=== PATIENT | male | born 1975 | race Caucasian/White ===

== ENCOUNTER 2019-11-15 15:38 | Inpatient (IN) | payer OTHER ==
[~2019-11-15] VITALS: Ht 167.6 cm; Wt 76.7 kg
[2019-11-15 15:39] VITALS: BP 102/65
[2019-11-15 17:02] LABS: ABSOLUTE NEUTROPHILS 3.6 thou/uL (1.4-8.2); BASOPHILS 0.6 % (0.0-2.0); EOSINOPHILS 0.5 % (0.0-3.0); HEMATOCRIT 43.6 % (42.0-52.0); HEMOGLOBIN 15.1 gm/dL (14.0-18.0); LYMPHOCYTES 12.7 % (24.0-44.0); MCH 31.8 pg (26.0-34.0); MCHC 34.7 g/dL (28.0-37.0); MCV 91.6 fL (80.0-100.0); MONOCYTES 10.9 % (1.0-8.0); PLATELET COUNT 141 thou/uL (150-400); POLYS 75.3 % (36.0-66.0); RBC 4.76 mil/uL (4.50-6.00); RDW 13.4 % (10.5-14.5); WBC 4.8 thou/uL (4.0-11.0)
[2019-11-15 17:17] LABS: ANION GAP 12 mmol/L (7-16); BUN 11 mg/dL (7-18); CALCIUM 8.5 mg/dL (8.5-10.1); CHLORIDE 94 mmol/L (98-107); CO2 24 mmol/L (21-32); CREATININE 0.7 mg/dL (0.7-1.3); GLUCOSE 192 mg/dL (74-106); POTASSIUM 3.8 mmol/L (3.5-5.1); SODIUM 130 mmol/L (136-145)
[2019-11-15 17:27] LABS: ALBUMIN 3.3 g/dL (3.4-5.0); MAGNESIUM 1.9 mg/dL (1.8-2.4); SALICYLATE < 2.8 mg/dL (2.8-20.0); SGOT 111 U/L (15-37); SGPT 118 U/L (30-65); TOTAL BILIRUBIN 0.8 mg/dL (0.2-1.0); TOTAL PROTEIN 7.5 g/dL (6.4-8.2); TROPONIN-I <0.06 ng/mL (<0.06)
[2019-11-15] MEDS ORDERED: METFORMIN HCL500 MG PO (18:22)
[2019-11-15] MEDS ORDERED: DOXYCYCLINE 10100 MG PO (18:22)
[2019-11-15 19:32] VITALS: BP 98/72
--- NOTE | 2019-11-15 19:36 | NUR ---
CALLED TO GIVE REPORT AND WAS TOLD RN BUSY IN A ROOM AND WILL CALL BACK LATER
[2019-11-15 19:44] LABS: BE(vivo) -3.6 mmol/L (-2 to +3); HCO3 19.6 mmol/L (22.0-26.0); PCO2 30.7 mmHg (35.0-45.0); PO2 69.3 mmHg (80.0-100.0); pH 7.424 (7.360-7.450); sO2 94.5 % (92.0-98.0)
[2019-11-15 20:13] VITALS: BP 100/69
[2019-11-15 21:40] VITALS: BP 89/58
--- NOTE | 2019-11-16 02:52 | NUR ---
PATIENT ASSESSED ON ADMISSION, ADMITTED PER CART TO ROOM 356. IS ALERT X 4. SKIN WARM AND DRY. LUNGS CTA-DISM. UP AD SHELDON. TELE- SHOWS NSR. NO EDEMA NOTED CAME IN BY AMBULANCE BECAUSE HE PASSED OUT IN THE YARD. HE STATED "MY NIECE KICKED ME OUT OF THE HOUSE." HAS NOT TAKEN BLOOD SUGAR MNEDICATION FOR OVER 2 YEARS. NO SKIN ISSUES. HAS A LEFT FA IV AND FLUIDS STARTED BY RN. TAKEN ALL MEDICATION ORDERED. BLOOD SUGAR WAS 300. 6 UNITS OF INSULIN GIVEN PER ORDERS. COVID- 19 TEST DONE AND SENT TO LAB. 02 AT 2LNC. DENIES ANY SOA. SLIGHT FEVER OF 99.1. SKIN WARM AND DRY. TYLENOL GIVEN FOR BACK PAIN AND FEVER. CONT PLAN OF CARE. DOES SPEAK CYMRAES. MAIN LANGUAGE NIS LUX[place]BOURGISH.
[2019-11-16 03:51] VITALS: BP 87/65
[2019-11-16 08:34] VITALS: BP 106/80
--- NOTE | 2019-11-16 12:52 | NUR ---
COVID TEST RESULTED POSITIVE TODAY AT 1210, CALLED TO UNIT BY LAB. SORAYA MANCILLA RN ROUNDING ON UNIT AND MADE AWARE, STATES SHE WILL CALL DR. MENDEZ TO MAKE AWARE, PATIENT TO STAY IN PRECAUTIONS. NO NEED TO RETEST PATIENT HAS HAD ANOTHER RECENT POSITIVE RESULT AT [facility] IN PAST WEEK.
[2019-11-16 15:04] LABS: URINE BILIRUBIN NEGATIVE (Negative); URINE BLOOD NEGATIVE (Negative); URINE CLARITY CLEAR; URINE COLOR YELLOW; URINE GLUCOSE-RANDOM* 2+ (Negative); URINE KETONES 3+ (Negative); URINE LEUKOCYTES-REFLEX NEGATIVE (Negative); URINE NITRITE-REFLEX NEGATIVE (Negative); URINE PROTEIN (DIPSTICK) NEGATIVE (Negative); URINE SPECIFIC GRAVITY 1.025 (1.005-1.035)
[2019-11-16 15:09] LABS: AMP/METHAMP Negative (Negative); BARBITURATES Negative (Negative); BENZODIAZEPINES Negative (Negative); COCAINE Negative (Negative); METHADONE Negative (Negative); OPIATES Negative (Negative); PCP Negative (Negative)
[2019-11-16 15:50] VITALS: BP 106/80
--- NOTE | 2019-11-16 16:00 | NUR ---
ASSUMED PATIENT CARE TODAY AT APPROXIMATELY 0700. PATIENT RESULTED POSITIVE FOR COVID THIS SHIFT AND DR. MENDEZ/ SORAYA MANCILLA AWARE, TO REMAIN IN PRECAUTIONS. REMAINED ON O2 THIS SHIFT. NO ACUTE SOB BUT DRY COUGH IS STILL NOTED, COMPLAINTS OF SORE THROAT THROUGHT SHIFT, MEDS ORDERED FOR COUGH, WILL CTM FOR EFFECTIVENESS. PT HAD FEVER OF 101.5 THIS SHIFT, TYLENOL GIVEN. CT OF CHEST COMPLETED, AWAITING RESULTS.
--- NOTE | 2019-11-16 16:12 | NUR ---
Chart reveiwed and case discussed with the care team. Pt in enhanced ISO for Covid+. Instructional Design Manager attempted to reach the pt via both his room and cell phone with no success. Message left on cell to contact cm regarding dc planning needs. Pt is pt pay, no insurance and works as a alarm mechanic. He is currently unemployed and was staying with his niece. He is no longer able to stay there and is making arrangements to stay with a friend in [place], [place]. The pt has utilized a [facility] in the past but has been without any primary care f/u and scripts (insulin ) for a number of months. Cm can assist with vouchering 30 days of medications at dc if needed. Pt was recently at [facility]. [facility] noted on the pt's dc instructions should he be dc ready over the weekend. Pt is up ad norris in his room and speaks some Greenlandic per the care team. Will follow.
--- NOTE | 2019-11-16 16:19 | EKG ---
[facility] [place] [address] ELECTROCARDIOGRAM REPORT Name: DIRK FUENTES Room #: 356-P ADM IN M.R.#: [id number] Admission: 11/15/19 Attend Phys: Blake Kang MD Discharge: Date of : 71 Report #: [id number] THIS REPORT FOR: cc: NENA - Vanessa family physician/PCP NENA - Vanessa family physician/PCP John Winkler MD [facility] THIS REPORT FOR: //name// [facility] ED Test Date: 2019-11-15 Test Time: 19:08:08 Pat Name: DIRK FUENTES Department: Room: [facility] Gender: M Editorial Specialist: MARIAH : 1975 Requested By: Tru Jefferson Order Number: [id number] MD: John Winkler Measurements Intervals [place] Rate: 101 P: 57 [place]: 130 QRS: 44 QRSD: 81 T: 45 QT: 336 QTc: 436 Interpretive Statements Sinus tachycardia Otherwise no significant abnormality No previous ECG available for comparison Electronically Signed On 11-16-2019 16:18:57 CDT by John Winkler [email or web address] <ELECTRONICALLY SIGNED> By: John Winkler MD, [facility] 11/16/19 1618 07 07 John Winkler MD, [facility] /EPI
[2019-11-16 16:29] VITALS: BP 105/73
--- NOTE | 2019-11-16 18:44 | NUR ---
patient o2 sat dropped on 2lnc to 88%, increased o2 to 4lnc and o2 sat increased to 94% and patient complaining of some anxiety. called dr. turpin to make him aware, states ok as long as o2 sat stays about 92% will look over chart to see if any changes can be made
[2019-11-16 22:16] VITALS: BP 117/81
[2019-11-17] VITALS (55 sets, daily range): BP systolic 79–167; BP diastolic 49–111
[2019-11-17 07:18] LABS: CHOLESTEROL 71 mg/dL (<200); HDL CHOLESTEROL 20 mg/dL (>40); LDL CHOLESTEROL 31 mg/dL (<100); TC:HDL 3.6 Ratio (Not establshd); TRIGLYCERIDE 103 mg/dL (<150); VLDL 21 mg/dL (<40)
[2019-11-17 07:23] LABS: BE(vivo) -0.2 mmol/L (-2 to +3); HCO3 22.4 mmol/L (22.0-26.0); PCO2 30.7 mmHg (35.0-45.0); PO2 41.4 mmHg (80.0-100.0); pH 7.481 (7.360-7.450); sO2 81.3 % (92.0-98.0)
[2019-11-17 07:23] LABS: SERUM ASSESSMENT Clear
--- NOTE | 2019-11-17 08:10 | NUR ---
RAPID RESPONSE CALLED ON THIS PATIENT AT 0700 THIS AM. NIGHT RN REPORTED THAT O2 SAT DROPPED TO 85% ON 4LNC. SOB WITH COUGHING. ABG DONE AND RESULTED CRITICAL O2 SAT 41, FEVER OF 102.5 THROUGHOUT THE NIGHT, PATIENT PLACED ON NON-REBREATHER, CALLED DR. LAWLER TO MAKE AWARE AND STATES WILL REPEAT ABG AND CONSULT PULMONARY.
--- NOTE | 2019-11-17 08:36 | NUR ---
PT SAT DROPPING TO 67 TO 75% ON 4L/NC PT REPOSITIONED AND INCREASED O2 TO 6L, RAPID RESPONSE CALLED, ABG, EKG, VS, DONE AND PLACED ON NON REBREATHER, SATS INCREASED TO 95%, REPORT GIVEN TO NEXT SHIFT, TO CON'T PPOC.
[2019-11-17 08:37] LABS: ABSOLUTE NEUTROPHILS 3.4 thou/uL (1.4-8.2); BASOPHILS 0.3 % (0.0-2.0); EOSINOPHILS 0.3 % (0.0-3.0); HEMATOCRIT 39.3 % (42.0-52.0); HEMOGLOBIN 13.5 gm/dL (14.0-18.0); LYMPHOCYTES 15.7 % (24.0-44.0); MCH 31.3 pg (26.0-34.0); MCHC 34.5 g/dL (28.0-37.0); MCV 90.9 fL (80.0-100.0); MONOCYTES 8.6 % (1.0-8.0); POLYS 75.1 % (36.0-66.0); RBC 4.32 mil/uL (4.50-6.00); RDW 13.2 % (10.5-14.5); WBC 4.6 thou/uL (4.0-11.0)
[2019-11-17 08:44] LABS: CALCIUM 7.7 mg/dL (8.5-10.1); CREATININE 0.6 mg/dL (0.7-1.3); POTASSIUM 3.6 mmol/L (3.5-5.1)
[2019-11-17 08:50] LABS: ALBUMIN 2.6 g/dL (3.4-5.0); MAGNESIUM 1.7 mg/dL (1.8-2.4); TOTAL BILIRUBIN 0.7 mg/dL (0.2-1.0); TOTAL PROTEIN 5.9 g/dL (6.4-8.2)
[2019-11-17 10:07] LABS: BE(vivo) 1.1 mmol/L (-2 to +3); HCO3 24.5 mmol/L (22.0-26.0); PCO2 35.2 mmHg (35.0-45.0); PO2 76.3 mmHg (80.0-100.0)
[2019-11-17 10:27] LABS: PLATELET COUNT 151 thou/uL (150-400)
--- NOTE | 2019-11-17 13:03 | NUR ---
PATIENT TRANSFERED TO ICU FOR WORSENING RESP ISSUES, PATIENT O2 SAT ON NON-REBREATHER 70-88% O2. NO COMPLAINTS OF SOB BUT DESATS WHEN COUGHING. PATIENT EDUCATED ON PLAN TO MOVE TO ICU. SPOKE WITH DR. CACERES AND RECIEVED ORDER FOR TRANSFER. CALLED REPORT TO JOSEPH ON UNIT. PATIENT TAKEN OFF UNIT VIA BED ON NONREBREATHER MASK, ALL BELONGINGS TAKEN WITH HIM. TELE MONITOR RETURNED TO STATION.
--- NOTE | 2019-11-17 15:12 | NUR ---
CONSULTED TO PLACE A CENTRAL LINE FOR A COVID + PATIENT NEEDING ADDITIONAL ACCESS. ORDER AND CONSENT NOTED. WITH THE ASSISTANCE OF A HOSPITAL SOCIAL WORKER THE PROCEDURE WAS EXPLAINED AND PATIENT CONSENTED. A RIGHT #6F TRIPLE LUMEN CENTRAL LINE WAS PLACED PER HOSPITAL POLICY. LINE WAS TRIMMED TO 25CM AND ADVANCED WITHOUT DIFFICULTY. A STAT CHEST XRAY CONFIRMED LINE IN GOOD POSITION AND LINE RELEASED FOR USE
--- NOTE | 2019-11-17 17:11 | NUR ---
HOOD MAKER initiated after pt. sats. dropped-see flowsheet
--- NOTE | 2019-11-17 19:46 | NUR ---
ASSUMED CARE @ 1310, PT ARRIVED ON THE UNIT ON A NRB @ 15L FROM 3W. PT INTUBATED @ [address] CACERES, RESTRAINTS PUT IN PLACE TO PROTECT, NO COMPLICATIONS. PROPOFOL, VERSED AND FENTANYL GTT IN PLACE FOR VENT MANAGEMENT. PT, HYPOTENSIVE AFTER ALL SEDATION STARTED, PT ON LEVO GTT TO KEEP MAP ABOVE 60. POST INTUBATION LABS CALLED TO DR CACERES, NO NEW ORDERS RECIEVED. OG PLACED AFTER INTUBATION, RN TOLD BY DR MEREDITH RADIOLOGY THAT IT NEEDS TO BE PULLED OUT AND PLACED AGAIN @ 1800, RN PASSES THIS INFORMATION DOWN TO HOME VISITS NURSE RN. QURESHI ATTEMPTED TO BE PLACED, PT IS UNCIRCUMCISED AND PENIS SEEMED TO BE DEFECTED, BECAUSE WHEN THE FORESKIN IS PULLED BACK THE HOLE IS OBSERVED BUT THE QURESHI DOES NOT GO THROUGH, I ASKED ANOTHER RN TO PLACE, THIS WAS UNSUCCESSFUL, I PLACED A CONDOM CATH AND INFORMED DR CACERES, HE THEN DIRECTED TO DR LAWLER, ORDER TO BLADDER SCAN AT 2000 AND @ 1200 AM, THIS IS PASSED DOWN TO HOME VISITS NURSE RN.
[2019-11-18] VITALS (29 sets, daily range): BP systolic 84–130; BP diastolic 52–86
--- NOTE | 2019-11-18 05:00 | NUR ---
PT HAVING BROWN BLOOD TINGED OUTPUT FROM OG. 14 COUDE URINARY CATHETER WAS PLACED. PT ON PROPOFOL, FENTANYL AND VERSED GTT. PT ON 2 MCG LEVOPHED. WEANED THE FIO2 TO 50% THIS AM. CONTINUE TO MONITOR. CHART CHECK.
[2019-11-18 05:14] LABS: PCO2 46.8 mmHg (35.0-45.0)
[2019-11-18 05:15] LABS: BE(vivo) -0.1 mmol/L (-2 to +3); HCO3 25.8 mmol/L (22.0-26.0)
[2019-11-18 05:16] LABS: sO2 96.4 % (92.0-98.0)
[2019-11-18 05:51] LABS: ABSOLUTE NEUTROPHILS 5.6 thou/uL (1.4-8.2); BASOPHILS 0.2 % (0.0-2.0); HEMATOCRIT 42.3 % (42.0-52.0); HEMOGLOBIN 14.3 gm/dL (14.0-18.0); LYMPHOCYTES 8.2 % (24.0-44.0); MCH 31.6 pg (26.0-34.0); MCHC 33.9 g/dL (28.0-37.0); MCV 93.1 fL (80.0-100.0); MONOCYTES 6.9 % (1.0-8.0); PLATELET COUNT 179 thou/uL (150-400); POLYS 84.7 % (36.0-66.0); RBC 4.54 mil/uL (4.50-6.00); RDW 13.9 % (10.5-14.5); WBC 6.6 thou/uL (4.0-11.0)
[2019-11-18 06:17] LABS: ALBUMIN 2.5 g/dL (3.4-5.0); CALCIUM 8.3 mg/dL (8.5-10.1); CREATININE 0.6 mg/dL (0.7-1.3); MAGNESIUM 2.3 mg/dL (1.8-2.4); POTASSIUM 3.3 mmol/L (3.5-5.1); TOTAL BILIRUBIN 0.4 mg/dL (0.2-1.0); TOTAL PROTEIN 6.8 g/dL (6.4-8.2)
--- NOTE | 2019-11-18 17:56 | NUR ---
ASSUMED CARE OF PT AT 0700, PT IS A GCS OF 9, CONT TO REQUIRE SEDATIVES FOR VENT MANAGEMENT BUT PT RESPONSIVE ON SEDATION BREAK. CONT ON LEVO FOR BLOOD PRESSURE SUPPORT. PT HASBEEN AFIBRILE OTHER VSS. FAMILY UPDATED OF PT CONDITION. WILL CONT TO PROVIDE CARE TOWARDS GOALS.
--- NOTE | 2019-11-18 23:10 | NUR ---
PT POTASSIUM 3.3 IN MORNING LAB. REPLACED WITH 40 MEQ KCL.
[2019-11-19] VITALS (26 sets, daily range): BP systolic 91–115; BP diastolic 60–80
[2019-11-19 05:27] LABS: BE(vivo) 4.1 mmol/L (-2 to +3); HCO3 28.5 mmol/L (22.0-26.0); PCO2 41.9 mmHg (35.0-45.0); PO2 90.1 mmHg (80.0-100.0); sO2 97.2 % (92.0-98.0)
--- NOTE | 2019-11-19 05:53 | NUR ---
WEANED FIO2 TO 45%. TITRATING SEDATION DOWN. LEVOPHED TURNED ON PT SYSTOLIC AROUND 80'S. POTASSIUM REPLACED LAST NIGHT.CONTINUE TO MONITOR. CHART CHECK.
[2019-11-19 05:56] LABS: HEMATOCRIT 39.1 % (42.0-52.0); HEMOGLOBIN 13.4 gm/dL (14.0-18.0); MCH 31.6 pg (26.0-34.0); MCHC 34.3 g/dL (28.0-37.0); MCV 92.2 fL (80.0-100.0); RBC 4.24 mil/uL (4.50-6.00); WBC 7.1 thou/uL (4.0-11.0)
[2019-11-19 06:31] LABS: CREATININE 0.5 mg/dL (0.7-1.3); POTASSIUM 3.3 mmol/L (3.5-5.1)
--- NOTE | 2019-11-19 08:06 | EKG ---
[facility] [place] [address] ELECTROCARDIOGRAM REPORT Name: DIRK FUENTES Room #: 246-P ADM IN M.R.#: [id number] Admission: 11/15/19 Attend Phys: Blake Kang MD Discharge: Date of : 71 Report #: [id number] THIS REPORT FOR: cc: NENA - Vanessa family physician/PCP NENA - Vanessa family physician/PCP John Winkler MD [facility] THIS REPORT FOR: //name// [facility] Test Date: 2019-11-17 Test Time: 07:18:38 Pat Name: DRIK FUENTES Department: Room: [facility] Gender: M Public Relations Specialist: JERSON : 1975 Requested By: Blake Kang Order Number: [id number] MD: John Winkler Measurements Intervals [place] Rate: 101 P: -7 [place]: 129 QRS: -4 QRSD: 80 T: 39 QT: 315 QTc: 409 Interpretive Statements Sinus tachycardia Otherwise no significant abnormality Compared to ECG 11/15/2019 19:08:08 No significant changes Electronically Signed On 11-19-2019 8:06:04 CDT by John Winkler [email or web address] <ELECTRONICALLY SIGNED> By: John Winkler MD, [facility] 11/19/1906 7 7 John Winkler MD, [facility] /EPI
--- NOTE | 2019-11-19 10:43 | NUR ---
Recommend start vital high protein at 30ml/hr and progress to goal of 50ml/hr while on propofol. Consider discontinue IVF and start water flush of 185ml every 6hr
--- NOTE | 2019-11-19 15:48 | NUR ---
pt remains on vent, unable to visit with yuri. alexx +. tf for nutritional support. will cont following as needed for dc needs.
[2019-11-19 16:53] LABS: CALCIUM 7.2 mg/dL (8.5-10.1); CREATININE 0.5 mg/dL (0.7-1.3); MAGNESIUM 2.2 mg/dL (1.8-2.4)
--- NOTE | 2019-11-19 17:21 | NUR ---
SPOKE WITH DR. MENDEZ AND BUCKY AND THEY BOTH AGREED TO GIVEN CONVALESCENT PLASMA VIA MEDICAL NECESSITY PT DOES NOT SPEAK EGLISH AND HAS NO FAMILY TO CALL AND IS INTUBATED. COLLECT TYPE AND SCREEN AND AWAIT ORDER PER DR. MENDEZ. WILL CONTINUE TO ASSESS.
--- NOTE | 2019-11-19 17:26 | NUR ---
PT BEGAN TO COUGH AND DESAT BELOW 90%. TRY TO SUCTION PATIENT BUT UNABLE TO GET SUCTION CATHETER DOWN ET TUBE. PAGE RT TO COME AND ASSIT. WAS ABLE TO GET SUCTION CATHETER DOWN ET TUBE AND SUCTIONED LARGE YELLOW SECRETIONS. RT ADJUST ET TUBE CUFF AND PT REMAINS AT 45% FIO2 AND IS SATURATING IN THE MID 90S SPO2. WILL CONTIINUE TO ASSESS.
--- NOTE | 2019-11-19 19:08 | NUR ---
REPORT GIVEN TO NIGHT RN AND ALL INFORMATION PASSED ALONG. NIGHT RN HAS NO MORE QUESTIONS.
[2019-11-20] VITALS (50 sets, daily range): BP systolic 84–129; BP diastolic 55–87
[2019-11-20 06:42] LABS: CALCIUM 7.8 mg/dL (8.5-10.1); CREATININE 0.4 mg/dL (0.7-1.3)
[2019-11-20 07:03] LABS: POTASSIUM 2.8 mmol/L (3.5-5.1)
--- NOTE | 2019-11-20 18:00 | NUR ---
BRIEF SEDATION VACATIONS PERFORMED, PT TRACKING, FOLLOWING COMMANDS WITH BOTH UPPER EXTREMITIES, NODDING YES AND NO. NEPHEW INQUIRED REGARDING PT STATUS, UPDATED.
[2019-11-21] VITALS (47 sets, daily range): BP systolic 83–157; BP diastolic 48–92
[2019-11-21 05:07] LABS: CALCIUM 7.6 mg/dL (8.5-10.1); CREATININE 0.5 mg/dL (0.7-1.3)
[2019-11-21 06:10] LABS: HEMATOCRIT 39.6 % (42.0-52.0); HEMOGLOBIN 13.2 gm/dL (14.0-18.0); MCH 31.1 pg (26.0-34.0); MCHC 33.4 g/dL (28.0-37.0); RBC 4.25 mil/uL (4.50-6.00); WBC 6.6 thou/uL (4.0-11.0)
--- NOTE | 2019-11-21 13:10 | NUR ---
BRIEF SEDATION VACATION FROM [id number]. PATIENT AWAKE, ALERT, CALM, NODS YES/NO, FOLLOWS SIMPLE COMMANDS. COMPLETE BATH AND LINEN CHANGE AT THIS TIME.
--- NOTE | 2019-11-21 17:25 | NUR ---
PATIENT TRANSFERRED FROM ROOM 246 TO ROOM 238. BELONGINGS SENT WITH PATIENT. PATIENT REMAINS LIGHTLY SEDATED ON PROPOFOL GTT AND FENTANYL GTT. PATIENT INTERMITTENT DROWSY. PATIENT MOVES ALL EXTREMITIES AND FOLLOWS SIMPLE COMMANDS. PATIENT HAD 2275 CC INTAKE AND 3200 CC OUTPUT THIS SHIFT.
[2019-11-22] VITALS (88 sets, daily range): BP systolic 84–128; BP diastolic 50–83
[2019-11-22 04:48] LABS: FIBRINOGEN 474.6 mg/dL (210-360); PROTIME 10.7 Seconds (9.3-11.4)
[2019-11-22 05:05] LABS: ALBUMIN 2.1 g/dL (3.4-5.0); CALCIUM 7.3 mg/dL (8.5-10.1); CREATININE 0.5 mg/dL (0.7-1.3); POTASSIUM 3.1 mmol/L (3.5-5.1); TOTAL BILIRUBIN 0.6 mg/dL (0.2-1.0); TOTAL PROTEIN 5.6 g/dL (6.4-8.2)
[2019-11-22 05:53] LABS: ABSOLUTE NEUTROPHILS 5.9 thou/uL (1.4-8.2); BASOPHILS 0.4 % (0.0-2.0); HEMATOCRIT 39.2 % (42.0-52.0); HEMOGLOBIN 13.1 gm/dL (14.0-18.0); LYMPHOCYTES 13.2 % (24.0-44.0); MCH 31.2 pg (26.0-34.0); MCHC 33.5 g/dL (28.0-37.0); MCV 93.1 fL (80.0-100.0); MONOCYTES 9.6 % (1.0-8.0); PLATELET COUNT 277 thou/uL (150-400); POLYS 71.8 % (36.0-66.0); RBC 4.21 mil/uL (4.50-6.00); WBC 8.2 thou/uL (4.0-11.0)
--- NOTE | 2019-11-22 12:15 | NUR ---
Pt did not tolerate CPAP trail this morning. Pt placed back on AC mode by RT. Sinus rhythm. Levophed at low dose (1 mcg/kg/min) Tolerating tube feedings. Pt is sedated with Propofol and Fentanyl gtts. Maintained in COVID precautions.
--- NOTE | 2019-11-22 14:53 | NUR ---
Pt's sister Gin Hayes is currently inpt on 3W with covid. She requested an update on her brother and would like to talk with him once he is able to come off the vent. Her cell number is [phone]. She reports that he had wanted to stay with her and her dtr; however her dtr was not comfortable with him staying with them due to the virus. She reports he was sleeping in his car prior to admission and she had went somewhere with him prior to his admission. She feels that's how she got the virus too. She is available and wants to be contacted if his condition worsens. Her son Kt Blank, pt's nephew and the pt's niece Beti Blank are available and concerned as well. Kt's number is [phone]. Nursing updated.
--- NOTE | 2019-11-22 19:15 | NUR ---
Report given to RN assuming care. Pt remains on low dose Levophed for BP suport. Propofol for sedation. Call received from authorized contact (Kt) for status report today.
[2019-11-23] VITALS (90 sets, daily range): BP systolic 87–141; BP diastolic 53–92
[2019-11-23 06:49] LABS: CALCIUM 7.8 mg/dL (8.5-10.1); CREATININE 0.4 mg/dL (0.7-1.3); POTASSIUM 3.1 mmol/L (3.5-5.1)
--- NOTE | 2019-11-23 09:48 | NUR ---
ASSUMED CARE AT 0700, ASSESSMENT AND VITAL SIGNS COMPLETED PER ICU PROTOCOL. DR. CACERES ROUNDED THIS AM, PLAN OF CARE DISCUSSED. RN WILL CONTINUE TO MONITOR.
--- NOTE | 2019-11-23 09:55 | NUR ---
Please clarify fluid needs with physician. Pt has orders for both water flushes, and on IVF 125ml/hr and on extra IVPB fluids.
[2019-11-23 12:51] LABS: ALBUMIN 1.9 g/dL (3.4-5.0); DIRECT BILIRUBIN < 0.1 mg/dL (<0.1-0.2); SGOT 35 U/L (15-37); SGPT 36 U/L (30-65); TOTAL BILIRUBIN 0.6 mg/dL (0.2-1.0)
--- NOTE | 2019-11-23 15:35 | NUR ---
SW reviewed chart. Pt in Enhanced Isolation due to COVID-19. Pt is intubated and sedated. On IV abx and Remdesivir. No weekend discharge planned. Pt's sister is also hospitalized in ICU for COVID-19. SW is following to assist as needed with discharge planning.
[2019-11-24] VITALS (56 sets, daily range): BP systolic 63–135; BP diastolic 36–94
[2019-11-24 06:07] LABS: CALCIUM 7.8 mg/dL (8.5-10.1); CREATININE 0.5 mg/dL (0.7-1.3); POTASSIUM 3.2 mmol/L (3.5-5.1)
--- NOTE | 2019-11-24 08:04 | NUR ---
PT IS LIGHTLY SEDATED WITH PROPOFOL AND FENTANYL ON THE VENT. HE IS VERY SENSITIVE TO THE SEDATION AND WAKES UP QUICKLY IF THE PROPOFOL IS OFF FOR EVEN A FEW MINUTES. PT WAS ABLE TO NOD HIS HEAD YES/NO WHEN ASKED IF HE WAS IN PAIN OR OKAY IN [place]. PT BECOMES EASILY RESTLESS AND HAS STRONG COUGH. PT HAS LARGE AMOUNTS OF ORAL SECRETIONS. INCREASED FIO2 FROM 60 TO 80% PT WOULD DESAT TO 78-80% WITH HIS COUGHING FITS. INCREASED PROPOFOL TO HELP WITH RESTLESSNESS. PT WAS FEBRILE AROUND 0500. NOITIFIED CONSTRUCTION IRONWORKER HELPER CONCRETER FOR HOSPITALIST. TYLENOL GIVEN VIA OGT. PT TOLERATING TF WELL. NOT PROGRESSING WELL TOWARD POC GOALS. REPORT GIVEN TO ONCOMING NURSE.
--- NOTE | 2019-11-24 09:07 | NUR ---
ASSUMED CARE AT 0700, ASSESSMENT AND VITAL SIGNS COMPLETED PER ICU PROTOCOL. RN WILL CONTINUE TO MONITOR AND FOLLOW POC.
[2019-11-24 17:56] LABS: URINE BILIRUBIN NEGATIVE (Negative); URINE BLOOD 3+ (Negative); URINE CLARITY CLEAR; URINE COLOR YELLOW; URINE GLUCOSE-RANDOM* 3+ (Negative); URINE KETONES NEGATIVE (Negative); URINE LEUKOCYTES-REFLEX NEGATIVE (Negative); URINE NITRITE-REFLEX NEGATIVE (Negative); URINE PROTEIN (DIPSTICK) NEGATIVE (Negative)
[2019-11-24 18:03] LABS: YEAST-REFLEX Present (None Seen)
[2019-11-24 18:04] LABS: CASTS None Seen /LPF (None Seen); SQUAMOUS None Seen /LPF (0-3); URINE RBC >20 Many /HPF (0-2); URINE WBC-REFLEX 0-5 Rare /HPF (0-5)
[2019-11-24 18:05] LABS: BACTERIA-REFLEX 1-9 Few /HPF (None Seen); CRYSTALS None Seen /LPF (None Seen)
[2019-11-25] VITALS (23 sets, daily range): BP systolic 91–124; BP diastolic 54–80
[2019-11-25 05:03] LABS: ABSOLUTE NEUTROPHILS 8.5 thou/uL (1.4-8.2); BASOPHILS 0.4 % (0.0-2.0); HEMATOCRIT 38.3 % (42.0-52.0); HEMOGLOBIN 12.7 gm/dL (14.0-18.0); LYMPHOCYTES 4.1 % (24.0-44.0); MCH 30.4 pg (26.0-34.0); MCHC 33.1 g/dL (28.0-37.0); MCV 91.8 fL (80.0-100.0); MONOCYTES 5.3 % (1.0-8.0); PLATELET COUNT 248 thou/uL (150-400); POLYS 86.2 % (36.0-66.0); RBC 4.17 mil/uL (4.50-6.00); RDW 14.1 % (10.5-14.5); WBC 9.8 thou/uL (4.0-11.0)
[2019-11-25 05:07] LABS: INR 1.2; PROTIME 11.9 Seconds (9.3-11.4)
[2019-11-25 05:13] LABS: FIBRINOGEN 532.9 mg/dL (210-360)
[2019-11-25 05:15] LABS: ALBUMIN 1.8 g/dL (3.4-5.0); CALCIUM 7.9 mg/dL (8.5-10.1); CREATININE 0.5 mg/dL (0.7-1.3); POTASSIUM 3.7 mmol/L (3.5-5.1); TOTAL BILIRUBIN 0.4 mg/dL (0.2-1.0); TOTAL PROTEIN 6.4 g/dL (6.4-8.2)
--- NOTE | 2019-11-25 08:01 | NUR ---
ASSUMED PT CARE AT 1900, PT IS SEDATED, REMAINS ON THE VENTILLATOR, ASSESSMENTS CHARTED, SR ON THE MONITOR, TOLERATING TUBE FEEDING, MEDICATION ADMINISTERED ORDERED AND PER ICU PROTOCOL, NO RESPIRATORY DISTRESS NOTED OVERNIGHT, SUCTIONED PRN, NO ISSUES OVERNIGHT, PASSED ON REPORT TO DAY NURSE
--- NOTE | 2019-11-25 19:30 | NUR ---
ASSUMED CARE OF PATIENT AT 0700. ASSESSMENT COMPLETED. PATIENT SEDATED AND ON GTT: LEVO, FENTANYL, VERSED AND PROPOFOL. PATIENT IN SOFT WRIST RESTRAINTS. STRONG COUGH AND GAG RESPONSE. ACCUCHECK Q 6. QURESHI PATIENT WITH PANKAJ COLORED URINE. OG TUBE WITH HP VITAL FEEDING. RESTRAINT ORDER RENEWED AT 0845. HAND OFF AND REPORT COMPLETED WITH JEFF LANGLEY. PATIENT TO CONTINUE WITH POC.
[2019-11-26] VITALS (58 sets, daily range): BP systolic 78–141; BP diastolic 44–92
[2019-11-26 04:43] LABS: CALCIUM 8.4 mg/dL (8.5-10.1); CREATININE 0.7 mg/dL (0.7-1.3); POTASSIUM 3.9 mmol/L (3.5-5.1)
--- NOTE | 2019-11-26 07:26 | NUR ---
PT REMAINS INTUBATED. NO S/S OF PAIN OVER NIGHT. TURN AND REPOSITION. QURESHI CATHETER IN PLACE WITH GOOD URINE OUTPUT. CONTINOUS TF VITAL HP AT 50 WITH 100 Q6H H2O FLUSH. AT APPROX 0400HRS THIS AM PT SBP IN LOW 78/44 AND REMAINED SBP IN 70s. LEVO TITRATED FROM 3MCG/MIN GRADUALLY TO MAX 30 MCG/MIN WITH SBP REMAINING IN UPPER 70 AND LOW 80S. PT FENTANYL WAS TITRATED DOWN FROM 100MCG TO 50 MCG INFUSION WITHOUT SIGNIFICANT CHANGE. PROPOFOL WAS TITRATED FROM 60 MCG/KG/MIN TO 50 MCG/KG/MIN STILL NO SIGNIFICANT CHANGE. AIYANA IZQUIERDO WAS NOTIFIED. ORDER OBTAINED TO PUT PROPOFOL ON HOLD DONE AT 0530HRS. ALSO NEW ORDER FOR 500 CC NS IV BOLUS. LAST BP 91/60.
[2019-11-26 09:27] LABS: BE(vivo) 7.9 mmol/L (-2 to +3); HCO3 32.7 mmol/L (22.0-26.0); PCO2 46.5 mmHg (35.0-45.0); PO2 107.9 mmHg (80.0-100.0); pH 7.465 (7.360-7.450); sO2 98.1 % (92.0-98.0)
--- NOTE | 2019-11-26 15:53 | NUR ---
SW reviewed chart and spoke with attending physician. Pt in ICU and in Enhanced Isolation due to COVID-19. Pt is intubated and sedated. Pt not ready for vent weaning. Pt is on IV abx. Was febrile over night. Following to assist as needed with discharge planning.
--- NOTE | 2019-11-26 18:16 | NUR ---
Popofol 50 mcg/kg/min, restraints continue. opens eyes to stimuation at times. keep map >60. levophed 1mcg/min. afebrile. a/c mode on ventilator. fio2 weaned to 40%. Vital AF tube feeds continue at 50ml/hr goal. felix with adequate urine output. right IJ triple lumen. versed, fentanyl gtt. total lift. scds on.
[2019-11-27] VITALS (36 sets, daily range): BP systolic 88–126; BP diastolic 49–84
--- NOTE | 2019-11-27 07:56 | NUR ---
ASSESSMENT AND INTERVENTION DOCUMENTED. NO ADVERSE EVENT THROUGHOUT THE NIGHT. PATIENT REMAINS INTUBATED AND SEDATES. TOLERATING TUBE FEEDING. PATIENT IS STABLE BUT NOT MOVING TOWARD GOALS. WILL CONTINUE TO MONITOR
[2019-11-27 11:54] LABS: BE(vivo) 11.4 mmol/L (-2 to +3); HCO3 35.7 mmol/L (22.0-26.0); PCO2 45.3 mmHg (35.0-45.0); pH 7.515 (7.360-7.450); sO2 92.4 % (92.0-98.0)
--- NOTE | 2019-11-27 15:01 | NUR ---
VASCULAR ACCESS LOOKED AT CVAD AT 0930 AND ONLY 2CM REMAINED IN NECK. LINE PULLED PRESSURE HELD. NEW ORDER THIS AFTERNOON FOR LINE. ORDER AND CONSENT VERIFIED. RIJ WAS WDILY PATENT WITH USG.6FR TL [id number] CM INSERTED TO 9CM EXTERNAL. STAT CXR ORDERED. PT TOLERATED WELL. BEDSIDE TIMEOUT WITH EMANUEL AGUILAR
--- NOTE | 2019-11-27 16:45 | NUR ---
CXR TOO DEEP WITHDREW 2CM NOW EXTERNAL IS 11CM. STAT 2ND CXR ORDERED
--- NOTE | 2019-11-27 17:15 | NUR ---
CXR TOO DEEP WITHDREW 2CM PER CXR. 2ND CXR ORDERED STAT
--- NOTE | 2019-11-27 18:19 | NUR ---
CXR CONFIRMED PLACEMENT,RIJ RELEASED FOR IMMEDIATE USE TO EMANUEL AGUILAR
[2019-11-28] VITALS (36 sets, daily range): BP systolic 79–129; BP diastolic 52–83
[2019-11-28 04:47] LABS: BE(vivo) 9.8 mmol/L (-2 to +3); HCO3 33.6 mmol/L (22.0-26.0); PO2 66.1 mmHg (80.0-100.0); pH 7.521 (7.360-7.450); sO2 94.8 % (92.0-98.0)
[2019-11-28 05:59] LABS: ABSOLUTE NEUTROPHILS 10.5 thou/uL (1.4-8.2); BASOPHILS 0.3 % (0.0-2.0); EOSINOPHILS 1.5 % (0.0-3.0); HEMATOCRIT 38.6 % (42.0-52.0); HEMOGLOBIN 12.8 gm/dL (14.0-18.0); MCH 30.5 pg (26.0-34.0); MCHC 33.2 g/dL (28.0-37.0); MCV 91.8 fL (80.0-100.0); MONOCYTES 2.7 % (1.0-8.0); PLATELET COUNT 243 thou/uL (150-400); POLYS 90.5 % (36.0-66.0); RBC 4.21 mil/uL (4.50-6.00); RDW 14.5 % (10.5-14.5); WBC 11.6 thou/uL (4.0-11.0)
--- NOTE | 2019-11-28 07:02 | NUR ---
PT MAKING POOR PROGRESS TOWARDS GOALS. LUNGS COARSE WITH EACH ASSESSMENT. HARSH COUGH SEVERAL TIMES WITH MODERATE AMOUNT OF OF THICK WHITE SPUTUM. NOTED SEVERAL EPISODES OF DESATIN TO 85-86%. ETT SUCTIONING WOULD RESOLVE THAT DESAT ISSUE.
[2019-11-28 12:42] LABS: BE(vivo) 5.8 mmol/L (-2 to +3); HCO3 30.1 mmol/L (22.0-26.0); PCO2 42.3 mmHg (35.0-45.0); PO2 82.1 mmHg (80.0-100.0); sO2 96.6 % (92.0-98.0)
[2019-11-29] VITALS (46 sets, daily range): BP systolic 88–116; BP diastolic 57–78
[2019-11-29 05:19] LABS: BE(vivo) 7.7 mmol/L (-2 to +3); HCO3 32.7 mmol/L (22.0-26.0); PCO2 46.9 mmHg (35.0-45.0); PO2 93.7 mmHg (80.0-100.0); pH 7.461 (7.360-7.450); sO2 97.4 % (92.0-98.0)
--- NOTE | 2019-11-29 07:35 | NUR ---
PT ON VENT 50% FIO2. PT REMAINS WITH FENT, VERSED, LEVO, PROPOFOL GTT RUNNING. PT CONTINUES TO BE DIAPHORETIC OFF AND ON THROUGHOUT SHIFT. PT WITH TUBE FEEDS AND TOLERATING. PT HAD LOW GRADE TEMP, COOLED ROOM OFF AND REMOVED LINENS.
[2019-11-29 10:03] LABS: BE(vivo) 11.5 mmol/L (-2 to +3); HCO3 36.6 mmol/L (22.0-26.0); PCO2 49.6 mmHg (35.0-45.0); PO2 53.1 mmHg (80.0-100.0); pH 7.486 (7.360-7.450); sO2 89.4 % (92.0-98.0)
--- NOTE | 2019-11-29 13:20 | NUR ---
Pt wt is declining. Nutrition needs have been reassessed, please increase tube feed order to new goal of 65ml/hr vital high protein. Continue water flushes of 200ml every 6hr
[2019-11-30] VITALS (37 sets, daily range): BP systolic 90–114; BP diastolic 58–78
[2019-11-30 02:06] LABS: GLYCOHEMOGLOBIN (HGB A1C) 11.2 % (4.8-5.6)
[2019-11-30 04:43] LABS: BE(vivo) 10.5 mmol/L (-2 to +3); HCO3 33.3 mmol/L (22.0-26.0); PCO2 37.5 mmHg (35.0-45.0); PO2 134.8 mmHg (80.0-100.0); pH 7.566 (7.360-7.450)
[2019-11-30 06:21] LABS: HEMATOCRIT 37.4 % (42.0-52.0); HEMOGLOBIN 12.4 gm/dL (14.0-18.0); MCH 30.8 pg (26.0-34.0); MCHC 33.2 g/dL (28.0-37.0); MCV 92.7 fL (80.0-100.0); RBC 4.03 mil/uL (4.50-6.00); RDW 14.3 % (10.5-14.5); WBC 10.4 thou/uL (4.0-11.0)
[2019-11-30 06:56] LABS: CALCIUM 8.7 mg/dL (8.5-10.1); CREATININE 0.7 mg/dL (0.7-1.3); POTASSIUM 3.2 mmol/L (3.5-5.1)
[2019-11-30 09:29] LABS: URINE BILIRUBIN NEGATIVE (Negative); URINE BLOOD 3+ (Negative); URINE CLARITY CLEAR; URINE COLOR YELLOW; URINE GLUCOSE-RANDOM* 1+ (Negative); URINE KETONES NEGATIVE (Negative); URINE LEUKOCYTES-REFLEX TRACE (Negative); URINE NITRITE-REFLEX NEGATIVE (Negative); URINE PROTEIN (DIPSTICK) 1+ (Negative)
--- NOTE | 2019-11-30 09:32 | HC ---
[facility] [place] [address] CONSULTATION Name: DIRK FUENTES Room #: 238-P ADM IN M.R.#: [id number] Admission: 11/15/19 Attend Phys: Blake Kang MD Discharge: Date of : 71 Report #: [id number] THIS REPORT FOR: cc: NENA Mendez family physician/PCP NENA Mendez family physician/PCP Kalina Mueller MD ~ CC: NENA physician/PCP Blake Kang DATE OF SERVICE: 11/29/2019 ENDOCRINE CONSULTATION NOTE CONSULTING PHYSICIAN: Dr. Amezquita. REASON FOR CONSULTATION: Type 1 diabetes mellitus, uncontrolled. HISTORY OF PRESENT ILLNESS: This is a 44-year-old male patient whose medical background is significant for multiple medical issues including insulin-dependent diabetes mellitus as well as reports of hypertension, hyperlipidemia and diabetic peripheral neuropathy. The patient presented to the hospital on 11/14 with complaints of feeling poorly with shortness of breath, cough, poor appetite, generalized weakness, lethargy and malaise. It appears that he was admitted to [facility] the day before for diabetic ketoacidosis. The patient is currently intubated and is not available for a detailed history and there is no record of his specific antidiabetic regimen in the outpatient setting. Shortly after arrival, the patient was found to have COVID-19 positive status and later on developed respiratory failure necessitating intubation and mechanical ventilation. He continues to be ventilated today, which is his 12th day of ventilator therapy. During this time, the patient has been treated with insulin and is currently on a combination of Lantus insulin 15 units at bedtime and Humalog supplemental scale very high intensity. His blood glucose values have run mostly around 250 mg/dL. The patient has recorded issues with peripheral diabetic neuropathy, but it is not feasible at this point to inquire as to whether or not he has diabetic retinopathy or nephropathy issues as well. Also, the patient is known to have hypertension and hyperlipidemia. REVIEW OF SYSTEMS: Cannot be obtained due to the patient's intubated state. [address] [address] CONSULTATION Name: DIRK FUENTES Room #: 238-P [facility] IN .R.#: [id number] Admission: 11/15/19 Attend Phys: Blake Kang MD Discharge: Date of : 71 Report #: [id number] PAST MEDICAL HISTORY: 1. Type 1 diabetes mellitus, possible recent DKA. 2. Hypertension. 3. Hyperlipidemia. 4. Peripheral diabetic neuropathy. 5. COVID-19 positive pneumonitis. 6. Respiratory failure. OUTPATIENT MEDICATIONS: Unknown at this point in time. CURRENT MEDICATIONS: Include: 1. Albuterol. 2. Lovenox. 3. Lantus insulin 15 units at bedtime. 4. Fenofibrate 54 mg daily. 5. Furosemide 20 mg IV daily. 6. Dexamethasone 8 mg. 7. Humalog supplemental scale, high intensity. 8. Midazolam as needed. 9. Propofol. ALLERGIES: No known drug allergies. FAMILY HISTORY: Noncontributory. SOCIAL HISTORY: The patient is homeless, has had a difficult living situation prior to admission and was living with family in [place], [place]. There are reports of substance abuse prior to admission. PHYSICAL EXAMINATION: I did not walk into the patient's room due to the lack of immediate availability of PPE, but I discussed his physical well-being and outlook today with the nursing staff in detail. VITAL SIGNS: Blood pressure is 115/76 mmHg, heart rate is 119 beats per minute, respirations 35 per minute, temperature 38.3 degrees Celsius. CONSTITUTIONAL: I have inspected the patient through the window glass and door and the patient was constitutionally lying in bed, intubated, sedated, motionless. NEUROLOGIC: No spontaneous movement, sedated. PSYCHIATRIC: No spontaneous movement or retraction, sedated. LABORATORY DATA: Blood glucose values have run consistently over 250 mg/dL and often into the 300 mg/dL range. Sodium 141, potassium 3.9, chloride 103, CO2 of 35, anion gap 3, BUN 24, creatinine 0.7, AST 24, total bilirubin 0.4, calcium 8.4, magnesium 2.0, alkaline phosphatase 69, ALT 34, total protein 6.4, albumin 1.8, EGFR 121. Lactic acid 1.0. Total LDH 326. CPK 77. Troponin is negative. Total cholesterol 71, triglycerides 153, HDL 20, LDL 31. CRP 291.6. Negative [facility] [address] [place] [address] CONSULTATION Name: DIRK FUENTES Room #: 238-P ADM IN M.R.#: [id number] Admission: 11/15/19 Attend Phys: Blake Kang MD Discharge: Date of : 71 Report #: [id number] for alcohol. BNP 126. INR of 1.2. White blood count 11.6, hemoglobin 12.8, hematocrit 38.6, platelets 243. He proved to be COVID-19 positive on 11/15. ASSESSMENT AND PLAN: 1. Type 1 diabetes mellitus, uncontrolled. As noted above, the patient is documented to have type 1 diabetes mellitus with possible admission for DKA immediately prior to this admission. There are no details that are readily available about how he handled his type 1 diabetes in the outpatient setting. Having examined his blood glucose values, the patient is currently consistently hyperglycemic on a combination of Lantus insulin 15 units daily as well as high intensity Humalog supplemental scale, which he had received about 100 units of over the past 24 hours. In order to organize his insulin intake, I will convert the patient to a combination of Humalog insulin 12 units q. 6 hours meant to cover his tube feedings, which are currently running at 50 mL an hour, in addition to advancing Lantus insulin to 40 units at night with a catch-up dose of 24 units now. As I do so, I will drop his Humalog supplemental scale to moderate intensity and maintain blood glucose monitoring q. 6 hours. Also, I will obtain a hemoglobin A1c to acquire a better feel for his overall level of control. 2. Pneumonia, respiratory failure. The patient is COVID-19 positive and he has received therapy with high-dose steroids, remdesivir, plasma and is currently on mechanical ventilation day 12. The Pulmonary Team is following closely. 3. Hypertension. The patient's level of blood pressure control is adequate, continue the current regimen. 4. Hyperlipidemia. The patient is currently on fenofibrate therapy and he is to continue with the same for the time being. I have reviewed the patient's clinical care notes, laboratory data, and other pertinent clinical information for over 35 minutes in addition to my encounter time with him. I certainly appreciate this kind consultation by Dr. Amezquita. <ELECTRONICALLY SIGNED> By: Kalina Mueller MD 11/30/19 [id number] MD toño Castano
[2019-11-30 12:47] LABS: SQUAMOUS 0-3 Few /LPF (0-3)
[2019-11-30 12:48] LABS: CASTS None Seen /LPF (None Seen); MUCUS >6 Heavy strn/LPF (None Seen)
[2019-11-30 12:49] LABS: BACTERIA-REFLEX 1-9 Few /HPF (None Seen); CRYSTALS None Seen /LPF (None Seen); URINE RBC >20 Many /HPF (0-2); URINE WBC-REFLEX 6-15 Few /HPF (0-5); YEAST-REFLEX Present (None Seen)
--- NOTE | 2019-11-30 13:11 | NUR ---
pt remains intubated with tube feed nutritional support. cont with IV gtts. no anticipated dc through weekend. will cont following as needed for dc needs.
--- NOTE | 2019-11-30 19:45 | NUR ---
SEDATED, UNABLE TO CPAP TODAY INCREASED MIN/VENT AND TEMP.
[2019-12-01] VITALS (13 sets, daily range): BP systolic 77–119; BP diastolic 53–76
[2019-12-01 04:59] LABS: BASOPHILS 0.9 % (0.0-2.0); EOSINOPHILS 2.3 % (0.0-3.0); HEMATOCRIT 36.6 % (42.0-52.0); HEMOGLOBIN 11.9 gm/dL (14.0-18.0); LYMPHOCYTES 7.5 % (24.0-44.0); MCH 30.3 pg (26.0-34.0); MCHC 32.5 g/dL (28.0-37.0); MCV 93.2 fL (80.0-100.0); PLATELET COUNT 233 thou/uL (150-400); POLYS 85.3 % (36.0-66.0); RBC 3.93 mil/uL (4.50-6.00); RDW 14.4 % (10.5-14.5); WBC 12.8 thou/uL (4.0-11.0)
[2019-12-01 05:13] LABS: ALBUMIN 1.8 g/dL (3.4-5.0); CALCIUM 8.4 mg/dL (8.5-10.1); CREATININE 0.6 mg/dL (0.7-1.3); POTASSIUM 3.2 mmol/L (3.5-5.1); TOTAL BILIRUBIN 1.2 mg/dL (0.2-1.0); TOTAL PROTEIN 7.4 g/dL (6.4-8.2)
[2019-12-01 05:18] LABS: BE(vivo) 8.8 mmol/L (-2 to +3); HCO3 34.6 mmol/L (22.0-26.0); PCO2 52.3 mmHg (35.0-45.0); PO2 66.3 mmHg (80.0-100.0); pH 7.438 (7.360-7.450); sO2 93.4 % (92.0-98.0)
--- NOTE | 2019-12-01 19:45 | NUR ---
PT INTUBATED AND SEDATED. FENTYANL, VERSED, PROPOFOL GTT'S FOR VENT MANAGEMENT. LEVO FOR BP SUPPORT. ARTIC SUN IN PLACE FOR INCRESED TEMPS. QURESHI IN PLACE. OLIGURIC DURING SHIFT SO BLADDER SCAN WAS COMPLETED. SCAN SHOWS 996ML. QURESHI WAS MANIPULATED TO PROMOTE DRAINAGE, LARGE AMOUNTS OF SCHMEGMA WAS PULLED OUT FROM PENIS. PT IS UNCIRCUMCISED AND RN IS UNABLE TO RETRACT FORESKIN OVER PENILE GLANDS. DR AGUAYO IS AWARE OF SITUATION. NO NEW ORDERS GIVEN. PT NOT PROGRESSING TOWARDS POC. SMALL BM TODAY. WILL CONTINUE TO MONITOR.
--- NOTE | 2019-12-01 20:08 | NUR ---
LATE ENTRY NOTE:PT PLACED ON ARTIC SUN DUE TO HYPERTHERMIA ON 11/30/19. RECTAL TEMP 104.6. DR VALENCIA AND VANESSA PREVIOUSLY NOTIFIED AND OK WITH ARTIC SUN IF PT REMAINED FEBRILE. PT NORMOTHERMIC IN THE AM 11/30.
[2019-12-02] VITALS (34 sets, daily range): BP systolic 72–125; BP diastolic 43–89
[2019-12-02 04:38] LABS: BE(vivo) 8.7 mmol/L (-2 to +3); PCO2 49.9 mmHg (35.0-45.0); PO2 60.8 mmHg (80.0-100.0); pH 7.451 (7.360-7.450)
[2019-12-02 06:01] LABS: ABSOLUTE NEUTROPHILS 6.2 thou/uL (1.4-8.2); BASOPHILS 0.9 % (0.0-2.0); EOSINOPHILS 8.7 % (0.0-3.0); HEMATOCRIT 33.4 % (42.0-52.0); HEMOGLOBIN 10.9 gm/dL (14.0-18.0); LYMPHOCYTES 12.2 % (24.0-44.0); MCH 30.3 pg (26.0-34.0); MCHC 32.7 g/dL (28.0-37.0); MCV 92.6 fL (80.0-100.0); MONOCYTES 3.4 % (1.0-8.0); PLATELET COUNT 206 thou/uL (150-400); POLYS 74.8 % (36.0-66.0); RDW 14.4 % (10.5-14.5); WBC 8.2 thou/uL (4.0-11.0)
[2019-12-02 06:09] LABS: ALBUMIN 1.6 g/dL (3.4-5.0); CALCIUM 8.1 mg/dL (8.5-10.1); CREATININE 0.5 mg/dL (0.7-1.3); MAGNESIUM 1.9 mg/dL (1.8-2.4); PHOSPHORUS 2.8 mg/dL (2.5-4.9); POTASSIUM 3.2 mmol/L (3.5-5.1); TOTAL BILIRUBIN 0.5 mg/dL (0.2-1.0); TOTAL PROTEIN 6.5 g/dL (6.4-8.2)
--- NOTE | 2019-12-02 08:17 | NUR ---
ASSUMED CARE OF PT AT 1900. PER RN REPORT PT HAD HIGH VOLUME IN BLADDER ON BLADDER SCANNER. RN FLUSHED QURESHI CATHETER WITH MINIMAL RESISTANCE WITH 20 CC OF NS. IMMEDIATELY URINE STARTED DRAINING. LARGE AMOUNT OF SEDIMENT NOTED IN URINE.
[2019-12-03] VITALS (49 sets, daily range): BP systolic 81–127; BP diastolic 54–87
[2019-12-03 05:38] LABS: ABSOLUTE NEUTROPHILS 7.8 thou/uL (1.4-8.2); BASOPHILS 0.9 % (0.0-2.0); EOSINOPHILS 6.5 % (0.0-3.0); HEMATOCRIT 34.1 % (42.0-52.0); HEMOGLOBIN 11.3 gm/dL (14.0-18.0); LYMPHOCYTES 7.1 % (24.0-44.0); MCH 30.6 pg (26.0-34.0); MCHC 33.3 g/dL (28.0-37.0); MCV 91.8 fL (80.0-100.0); PLATELET COUNT 263 thou/uL (150-400); POLYS 82.5 % (36.0-66.0); RBC 3.71 mil/uL (4.50-6.00); WBC 9.4 thou/uL (4.0-11.0)
[2019-12-03 05:55] LABS: ALBUMIN 1.6 g/dL (3.4-5.0); CALCIUM 8.5 mg/dL (8.5-10.1); CREATININE 0.5 mg/dL (0.7-1.3); PHOSPHORUS 2.9 mg/dL (2.5-4.9); POTASSIUM 3.5 mmol/L (3.5-5.1); TOTAL BILIRUBIN 0.5 mg/dL (0.2-1.0); TOTAL PROTEIN 6.6 g/dL (6.4-8.2)
[2019-12-03 06:56] LABS: LARGE PLATELETS OCCASIONAL
--- NOTE | 2019-12-03 08:40 | NUR ---
OPENS EYES AT TIMES AND WILL FOLLOW COMMANDS.PATIENT IS ON THE FOLLOWING GTTS: FENTANYL,PROPOFOL,VERSED,LEVOPHED TITRATED.OGT,ETT,UQRESHI,ARCTIC SUN,AND SCD'S INTACT.ON VITAL HP AT 50 ML/HR.POC CONTINUED.
--- NOTE | 2019-12-03 13:12 | NUR ---
chart review. pt remains intubated, tube feeding for nutritional support. blood sugar up and down per notes. cont on iv gtts. noted per bedside nurse note, pt open eyes and follows commands. will cont following as needed for dc needs.
--- NOTE | 2019-12-03 14:40 | NUR ---
RESP DISTRESS INCLUDING RR-40'S AFTER PROPOFOL INCREASED. RESP THERAPY NOTIFIED. STAT PORTABLE CHEST XRAY PENDING.
--- NOTE | 2019-12-03 15:42 | NUR ---
Dr. Moser observed xray. no changed. currently resp rate-22, sa02 100%.
--- NOTE | 2019-12-03 21:57 | NUR ---
PT IN BED REMAINS ON VENTILATOR, VERSED, FENTANYL, LEVOPHED, PROPOFOL AND SOFT WRIST RESTRAINTS INTACT. EYES OPEN WHEN NURSE WALKED INTO ROOM, EXTREMIIES REMAIN WEAK AND STIFF. QURESHI TO DD, SCDS INTACT. ARTIC SUN REMOVED. PT HAD MODERATE BM. LUNGS WHEEZES AND DIMINISHED IN BASES. EDEMA IN BILATERAL HANDS. LOTION APPLIED TO FUNGAL RASH ON SCROTUM AND PENIS. FSBS PRIOR TO LANTUS 59, HELD LANTUS AND D50 PROVIDED, REPEAT FSBS 138. OG FEEDING VITAL AF CONTINUES. WHEN PT REPOSITIONED INCREASE IN COUGHING AND RR NOTED.
[2019-12-04] VITALS (55 sets, daily range): BP systolic 82–147; BP diastolic 55–90
--- NOTE | 2019-12-04 01:46 | NUR ---
BP LOW INCREASED LEVOPHED TO 3 MCG.
--- NOTE | 2019-12-04 05:00 | NUR ---
RR INCREASED ADJUSTED VERSED INCREASED TO 3MG AND PROPOFOL TO 50 MCQ.
[2019-12-04 05:42] LABS: BE(vivo) 3.6 mmol/L (-2 to +3); HCO3 29.1 mmol/L (22.0-26.0); PO2 62.2 mmHg (80.0-100.0); pH 7.401 (7.360-7.450); sO2 91.7 % (92.0-98.0)
[2019-12-04 05:43] LABS: ABSOLUTE NEUTROPHILS 7.2 thou/uL (1.4-8.2); HEMATOCRIT 31.6 % (42.0-52.0); HEMOGLOBIN 10.7 gm/dL (14.0-18.0); LYMPHOCYTES 7.5 % (24.0-44.0); MCH 30.4 pg (26.0-34.0); MCHC 33.9 g/dL (28.0-37.0); MCV 89.5 fL (80.0-100.0); MONOCYTES 2.7 % (1.0-8.0); PLATELET COUNT 272 thou/uL (150-400); POLYS 81.8 % (36.0-66.0); RBC 3.53 mil/uL (4.50-6.00); WBC 8.7 thou/uL (4.0-11.0)
[2019-12-04 06:11] LABS: ALBUMIN 1.5 g/dL (3.4-5.0); CALCIUM 8.3 mg/dL (8.5-10.1); CREATININE 0.4 mg/dL (0.7-1.3); MAGNESIUM 1.9 mg/dL (1.8-2.4); PHOSPHORUS 2.9 mg/dL (2.5-4.9); POTASSIUM 3.7 mmol/L (3.5-5.1); TOTAL BILIRUBIN 0.4 mg/dL (0.2-1.0); TOTAL PROTEIN 6.4 g/dL (6.4-8.2)
--- NOTE | 2019-12-04 09:33 | NUR ---
SEE REASSESSMENT FOR NEURO DETAILS. SEDATION VACATION IN PROGRESS. BS-261. NOW SPONTANOUSLY OPENING EYES, MOVES HEAD SLIGHTLY FROM SIDE TO SIDE, OTHERWISE NOT FOLLOWING COMMANDS, FACIAL GRIMACE, SPONTANEOUSLY COUGHS AND CONTINUES TAKING BREATHS ABOVE VENT SET RATE.
--- NOTE | 2019-12-04 15:40 | NUR ---
1540 pt diaphoretic, RR-40's, labored paradoxical breathing with use of accessory muscles, HR-120-130's. all sedation increased. [address]-140's. call placed to Dr. Moser- left message. [address] Moser again. call immediately returned. updated on pt status. see orders. 1645 abg, labs drawn and pcxr completed. currently ST-110, RR-38, breathing less labored, no paradoxical breathing nor use of accessory muscles.
[2019-12-04 16:30] LABS: BE(vivo) 6.2 mmol/L (-2 to +3); HCO3 31.1 mmol/L (22.0-26.0); PCO2 45.6 mmHg (35.0-45.0); pH 7.451 (7.360-7.450)
[2019-12-04 16:40] LABS: HEMATOCRIT 35.6 % (42.0-52.0); HEMOGLOBIN 11.8 gm/dL (14.0-18.0); MCH 29.8 pg (26.0-34.0); MCHC 33.2 g/dL (28.0-37.0); MCV 89.6 fL (80.0-100.0); RBC 3.97 mil/uL (4.50-6.00); RDW 14.1 % (10.5-14.5); WBC 12.1 thou/uL (4.0-11.0)
[2019-12-04 16:53] LABS: ANION GAP 5 mmol/L (7-16); BUN 17 mg/dL (7-18); CALCIUM 8.7 mg/dL (8.5-10.1); CHLORIDE 100 mmol/L (98-107); CO2 33 mmol/L (21-32); CREATININE 0.6 mg/dL (0.7-1.3); GLUCOSE 294 mg/dL (74-106); POTASSIUM 3.7 mmol/L (3.5-5.1); SODIUM 138 mmol/L (136-145)
[2019-12-04 17:04] LABS: ALBUMIN 1.8 g/dL (3.4-5.0); SGOT 66 U/L (15-37); SGPT 97 U/L (30-65); TOTAL BILIRUBIN 0.4 mg/dL (0.2-1.0); TOTAL PROTEIN 7.3 g/dL (6.4-8.2); TROPONIN-I <0.06 ng/mL (<0.06)
[2019-12-05] VITALS (64 sets, daily range): BP systolic 74–135; BP diastolic 40–93
[2019-12-05 03:27] LABS: BE(vivo) 9.9 mmol/L (-2 to +3); HCO3 34.8 mmol/L (22.0-26.0); PCO2 48.5 mmHg (35.0-45.0); PO2 79.3 mmHg (80.0-100.0); pH 7.474 (7.360-7.450); sO2 96.3 % (92.0-98.0)
--- NOTE | 2019-12-05 04:56 | NUR ---
Assumed care 1900. pt sedated. , on propofol 50, Levo 3 mcg to keep MAP > 60 Versed 6 ml/hr and Fentanyl 50 mcg/hr. Pt is sedated, none responsive, pupils reactivr but sluggish. No apparent pain. Fentanyl titrated down from 75 mcg/hr to 50 mcg/hr due to soft BPs. Repositioning and bed rotation maintained. Enhanced Isolation maintained. Bath with chrolohexidine wipes given. catheter secure and draining well. No other concerns. Pt tolerating tube feeding with minimal residual. Will continue to monitor.
[2019-12-05 05:59] LABS: BASOPHILS 0.5 % (0.0-2.0); EOSINOPHILS 9.6 % (0.0-3.0); HEMATOCRIT 32.4 % (42.0-52.0); HEMOGLOBIN 10.9 gm/dL (14.0-18.0); LYMPHOCYTES 6.8 % (24.0-44.0); MCH 30.4 pg (26.0-34.0); MCHC 33.6 g/dL (28.0-37.0); MCV 90.4 fL (80.0-100.0); PLATELET COUNT 312 thou/uL (150-400); POLYS 79.1 % (36.0-66.0); RBC 3.58 mil/uL (4.50-6.00); RDW 14.4 % (10.5-14.5); WBC 8.8 thou/uL (4.0-11.0)
[2019-12-05 06:21] LABS: ALBUMIN 1.6 g/dL (3.4-5.0); CALCIUM 8.5 mg/dL (8.5-10.1); CREATININE 0.3 mg/dL (0.7-1.3); POTASSIUM 3.3 mmol/L (3.5-5.1); TOTAL BILIRUBIN 0.3 mg/dL (0.2-1.0)
[2019-12-05 10:21] LABS: BE(vivo) 8.9 mmol/L (-2 to +3); HCO3 33.2 mmol/L (22.0-26.0); PCO2 44.1 mmHg (35.0-45.0); PO2 57.6 mmHg (80.0-100.0); pH 7.494 (7.360-7.450); sO2 91.9 % (92.0-98.0)
--- NOTE | 2019-12-05 18:30 | NUR ---
ASSUMED CARE OF PT AT 0700, PT IS A GCS OF 7, CONT ON SEDAQTIVES FOR VENT MANAGEMENT. HE HAS BEEN AFIBRILE. PT ANDERSON TF WELL. OTHER VSS. CONT ON LOW DOSE LEVO FOR B/P SUPPORT. PT RESTING AT THIS TIME WITH EYES CLOSED.
[2019-12-06] VITALS (83 sets, daily range): BP systolic 58–148; BP diastolic 20–91
--- NOTE | 2019-12-06 07:28 | NUR ---
PT SEDATED. DOES NOT FOLLOW COMMANDS. SEDATION MAINTAINED, FENTANYL 50MCG/HR, PRECEDEX 1.2, VERSED 6MG/HR. LEVO AT 1 MCG/HR KEEPING MAP >60. AFIBRILE, NO APPARENT PAIN. SR ON THE MONITOR. NO CONCERNS. TACHYPNEA WHEN COUGHING. NO OTHER CONCERNS. WILL CONTINUE WITH POC.
[2019-12-06 12:00] LABS: ABSOLUTE NEUTROPHILS 10.5 thou/uL (1.4-8.2); BASOPHILS 0.3 % (0.0-2.0); HEMOGLOBIN 11.4 gm/dL (14.0-18.0); LYMPHOCYTES 6.8 % (24.0-44.0); MCH 29.9 pg (26.0-34.0); MCHC 33.5 g/dL (28.0-37.0); MCV 89.3 fL (80.0-100.0); MONOCYTES 4.6 % (1.0-8.0); PLATELET COUNT 346 thou/uL (150-400); POLYS 82.3 % (36.0-66.0); RBC 3.81 mil/uL (4.50-6.00); RDW 14.3 % (10.5-14.5); WBC 12.8 thou/uL (4.0-11.0)
[2019-12-06 12:17] LABS: ALBUMIN 1.8 g/dL (3.4-5.0); CALCIUM 8.7 mg/dL (8.5-10.1); CREATININE 0.6 mg/dL (0.7-1.3); TOTAL BILIRUBIN 0.4 mg/dL (0.2-1.0); TOTAL PROTEIN 7.4 g/dL (6.4-8.2)
--- NOTE | 2019-12-06 16:12 | NUR ---
PATIENT REMAINS INTUBATED AND SEDATED. COUGHING AND WHEEZING PRESENT, PT OFTEN BREATHES FASTER THAN VENT SETTINGS. CPAP TRIALED TODAY, RESP RATE ELEVATED TO LOW 40'S DID NOT TOLERATE TRIAL WELL. PT LOW GRADE FEVER TODAY, INFECT CONTROL PHYSICIAN AWARE. FALL PRECAUTIONS IN PLACE.
--- NOTE | 2019-12-06 22:16 | NUR ---
PT ON VENT. RR ELEVATED 35-44, BP LOW SBP 62- 80S CHARGE NURSE INCREASED PRECEDEX, LEVOPHED AND FI02 TO 50%. RT AND CHARGE NURSE UPDATED. PT DIAPHORETIC PRN TYLENOL PROVIDED ELEVATED TEMP. QURESHI TO DD, SCDS. TFEEDING INTACT. SOFT WRIST RESTRAINTS REMAIN INTACT.REMAINS ON FENTANYL AND VERSED WELL.
--- NOTE | 2019-12-06 23:00 | NUR ---
BP REMAINS LOW RR HIGH, PROVIDER MAGAZINE WRITER NOTIFIED. INCREASED TO LEVOPHED TO 15 AND TITRATE DOWN. ALSO TO CALL DR VALENCIA TO UPDATE. CHARGE NURSE UPDATED.
--- NOTE | 2019-12-06 23:03 | NUR ---
DR VALENCIA RECOMMENDED TO INCREASE VERSED TO 10 AND USE LEVOPHED TO HOLD BP.
[2019-12-06 23:56] LABS: BE(vivo) 0.5 mmol/L (-2 to +3); PCO2 35.2 mmHg (35.0-45.0); pH 7.452 (7.360-7.450); sO2 88.7 % (92.0-98.0)
[2019-12-06 23:57] LABS: PO2 52.1 mmHg (80.0-100.0)
[2019-12-07] VITALS (112 sets, daily range): BP systolic 50–150; BP diastolic 21–96
--- NOTE | 2019-12-07 00:48 | NUR ---
PT HAS CONTINUED HR 155 PROVIDER NOTIFIED. NEW ORDERS OBTAINED. CHEST XRAY OBTAINED. NURSING WELDING PANTOGRAPH OPERATOR AND CHARGE NURSE NOTIFIED. NEOSYN DRIP INITIATED BY ICU NURSE.
--- NOTE | 2019-12-07 02:15 | NUR ---
NEOSYN CONTINUES AND LEVOPHED BEING TAPERED DOWN. CHARGE NURSE AND ICU NURSE UPDATED.
--- NOTE | 2019-12-07 04:48 | NUR ---
PT AWAKENED, RESTLESS EYES OPEN, INCREASE IN USE OF ACCESSORY MUSCLES, CHARGE NURSE ASSESSED PT AND TIRATED SEDATION.
--- NOTE | 2019-12-07 11:38 | NUR ---
chart review. pt cont intubated, tube feed for nutritional support. daily weaning trials. noted in chart, elevated temp 101.5. not following commands. will cont following as needed for dc needs. no anticpated dc over the weekend.
[2019-12-07 13:32] LABS: ABSOLUTE NEUTROPHILS 10.3 thou/uL (1.4-8.2); BASOPHILS 0.6 % (0.0-2.0); EOSINOPHILS 0.8 % (0.0-3.0); HEMOGLOBIN 11.2 gm/dL (14.0-18.0); LYMPHOCYTES 3.9 % (24.0-44.0); MCH 30.2 pg (26.0-34.0); MCHC 33.9 g/dL (28.0-37.0); MCV 89.3 fL (80.0-100.0); PLATELET COUNT 297 thou/uL (150-400); POLYS 91.7 % (36.0-66.0); RDW 14.4 % (10.5-14.5); WBC 11.3 thou/uL (4.0-11.0)
[2019-12-07 13:47] LABS: ANION GAP 5 mmol/L (7-16); BUN 22 mg/dL (7-18); CALCIUM 8.2 mg/dL (8.5-10.1); CHLORIDE 101 mmol/L (98-107); CO2 31 mmol/L (21-32); CREATININE 0.6 mg/dL (0.7-1.3); GLUCOSE 272 mg/dL (74-106); POTASSIUM 4.7 mmol/L (3.5-5.1); SODIUM 137 mmol/L (136-145)
[2019-12-07 13:57] LABS: ALBUMIN 2.1 g/dL (3.4-5.0); MAGNESIUM 1.8 mg/dL (1.8-2.4); PHOSPHORUS 2.6 mg/dL (2.5-4.9); SGOT 65 U/L (15-37); SGPT 84 U/L (30-65); TOTAL BILIRUBIN 0.7 mg/dL (0.2-1.0); TOTAL PROTEIN 7.1 g/dL (6.4-8.2); TROPONIN-I <0.06 ng/mL (<0.06)
--- NOTE | 2019-12-07 16:18 | NUR ---
ON THE VENT HEAVILY SEDATED FOR VENT MANAGEMENT. ON LEVO FOR BP SUPPORT AND TITRATING NEEDED. FEBRILE AND TACHYCHARDIC AND TYLENOL ADMINISTERED PRN FOR FEVER AND FENTANYL GTT FOR PAIN MANAGEMENT. ASSESSMENT COMPLETED. RN FROM [facility] CALLED FOR UPDATE SO TO UPDATED HECTOR'S SISTER WHO IS A PATIENT THERE. PATIENT NOT PROGRESSING TOWARDS POC GOALS.
--- NOTE | 2019-12-07 22:17 | NUR ---
1899-RECEIVED REPORT FROM JACQUI AGUILAR. ASSUMED PATIENT CARE. 1929-UPON ASSESSMENT, FOUND THAT PATIENT TEMPERATURE ORALLY WAS 105 F; TEMPERATURE AXILLARY WAS 106.2 F. PLACED AXILLARY PROBE AT THIS TIME UNDER RIGHT ARM. NOTIFIED ANASTACIO AGUILAR OF FINDING. ANASTACIO NOTIFIED AL BRONSON OF FINDING. ORDER TO GIVE TYLENOL NOW; ALTERNATE BETWEEN TYLENOL AND IBUPROFEN; AND USE HYPOTHERMIA VEST TO BRING DOWN TEMPERATURE. ANY AGUILAR AT BEDSIDE. THIS JEFF AND ANY WASHED PATIENT IN COOL WATER AND PLACED ICE PACKS AT GROIN, AXILLARY BILATERALLY, AND NECK. NOTED THAT BILATERAL LEGS BELOW KNEES FELT COLDER THAN REST OF BODY. PATIENT HAD VISIBLE SWEAT ON FOREHEAD. TYLENOL GIVEN. 2030-TEMP RECHECK: 103 F ORAL 2200-TEMP RECHECK: 100.6 F ORAL
[2019-12-08] VITALS (91 sets, daily range): BP systolic 73–145; BP diastolic 23–104
[2019-12-08 05:29] LABS: BE(vivo) -1.4 mmol/L (-2 to +3); HCO3 29.3 mmol/L (22.0-26.0); PCO2 84.7 mmHg (35.0-45.0); PO2 74.5 mmHg (80.0-100.0); sO2 89.8 % (92.0-98.0)
[2019-12-08 05:30] LABS: pH 7.157 (7.360-7.450)
[2019-12-08 06:36] LABS: URINE BILIRUBIN NEGATIVE (Negative); URINE BLOOD 1+ (Negative); URINE CLARITY CLEAR; URINE COLOR YELLOW; URINE GLUCOSE-RANDOM* 1+ (Negative); URINE KETONES NEGATIVE (Negative); URINE LEUKOCYTES-REFLEX NEGATIVE (Negative); URINE NITRITE-REFLEX NEGATIVE (Negative); URINE PROTEIN (DIPSTICK) NEGATIVE (Negative); URINE SPECIFIC GRAVITY 1.015 (1.005-1.035)
[2019-12-08 06:47] LABS: CALCIUM 8.5 mg/dL (8.5-10.1); CREATININE 0.7 mg/dL (0.7-1.3); MAGNESIUM 2.3 mg/dL (1.8-2.4); POTASSIUM 4.5 mmol/L (3.5-5.1)
[2019-12-08 07:14] LABS: HEMATOCRIT 34.5 % (42.0-52.0); HEMOGLOBIN 11.3 gm/dL (14.0-18.0); MCH 30.2 pg (26.0-34.0); MCHC 32.9 g/dL (28.0-37.0); MCV 91.9 fL (80.0-100.0); RBC 3.76 mil/uL (4.50-6.00); RDW 14.9 % (10.5-14.5); WBC 16.2 thou/uL (4.0-11.0)
[2019-12-08 07:45] LABS: CASTS None Seen /LPF (None Seen); MUCUS 4-6 Moderate strn/LPF (None Seen); SQUAMOUS 0-3 Few /LPF (0-3); URINE RBC 0-2 Rare /HPF (0-2); URINE WBC-REFLEX 0-5 Rare /HPF (0-5)
[2019-12-08 07:46] LABS: BACTERIA-REFLEX None Seen /HPF (None Seen); CRYSTALS None Seen /LPF (None Seen); YEAST-REFLEX Present (None Seen)
--- NOTE | 2019-12-08 14:06 | NUR ---
ASSUMED CARE AT 0700, ASSESSMENT AND VITAL SIGNS COMPLETED PER ICU PROTOCOL. DR. VALENCIA, DR. BAIRD, AND DR. WEINBERG ROUNDED THIS AM, PLAN OF CARE DISCUSSED WITH ALL PHYSICIANS. DR. BAIRD INSRUCTED TO START ARCTIC SUN COOLING TO MAINTAIN TEMPATURE LOWER THAN 39.5. DR. VALENCIA PAGED AND NOTIFIED OF TEMPATURE 39 DEGREES AND HEART RATE IN THE 130s. NEW ORDERS RECEIVED, RN WILL CONTINUE TO MONITOR.
--- NOTE | 2019-12-08 16:42 | NUR ---
DR Curt MENDEZ ORDERED NEW CVAD PLACED, AFTER CONFIRMATION OF LINE DC RIJ DUE TO PURULENT DRAINAGE NOTED AT SITE LAST NIGHT AND ELEVATED TEMP YESTERDAY. LIJ WAS WIDELY PATENT WITH USG. PT'S NECK VERY STIFF HAD DIFFICULT TIME POSITIONING NECK TO GAIN ACCESS ON LEFT SIDE. 6FR TL POWER JACC 25CM INSERTED TO 6 CM EXTERNAL WITH BRISK BR X3. STAT CXR ORDERED. PT TOLERATED WELL. BLEEDING AT SITE SO GAUZE APPLIED TO DRESSING
[2019-12-08 16:49] LABS: BE(vivo) 4.7 mmol/L (-2 to +3); HCO3 29.1 mmol/L (22.0-26.0); PCO2 42.5 mmHg (35.0-45.0); PO2 74.6 mmHg (80.0-100.0); pH 7.454 (7.360-7.450); sO2 95.6 % (92.0-98.0)
--- NOTE | 2019-12-08 18:00 | NUR ---
CXR CONFIRMED LIJ IN LOWER SVC. RELEASED FOR IMMEDIATE USE TO TORRES AGUILAR AND INFORMED THAT RIJ MAY NOW BE REMOVED SINCE ACCESS IS CONFIRMED
[2019-12-09] VITALS (70 sets, daily range): BP systolic 83–126; BP diastolic 54–90
[2019-12-09 05:07] LABS: BE(vivo) 3.9 mmol/L (-2 to +3); HCO3 28.1 mmol/L (22.0-26.0); PCO2 40.9 mmHg (35.0-45.0); PO2 110.4 mmHg (80.0-100.0); pH 7.455 (7.360-7.450); sO2 98.2 % (92.0-98.0)
[2019-12-09 06:02] LABS: ABSOLUTE NEUTROPHILS 6.8 thou/uL (1.4-8.2); BASOPHILS 0.8 % (0.0-2.0); EOSINOPHILS 0.1 % (0.0-3.0); HEMATOCRIT 31.6 % (42.0-52.0); HEMOGLOBIN 10.6 gm/dL (14.0-18.0); LYMPHOCYTES 8.3 % (24.0-44.0); MCH 30.4 pg (26.0-34.0); MCHC 33.5 g/dL (28.0-37.0); MCV 90.7 fL (80.0-100.0); MONOCYTES 3.3 % (1.0-8.0); POLYS 87.5 % (36.0-66.0); RBC 3.49 mil/uL (4.50-6.00); RDW 15.1 % (10.5-14.5); WBC 7.8 thou/uL (4.0-11.0)
[2019-12-09 06:21] LABS: PLATELET COUNT 52 thou/uL (150-400)
[2019-12-09 06:36] LABS: ALBUMIN 1.4 g/dL (3.4-5.0); CALCIUM 7.8 mg/dL (8.5-10.1); CREATININE 0.6 mg/dL (0.7-1.3); MAGNESIUM 2.1 mg/dL (1.8-2.4); POTASSIUM 4.1 mmol/L (3.5-5.1); TOTAL BILIRUBIN 0.4 mg/dL (0.2-1.0); TOTAL PROTEIN 6.3 g/dL (6.4-8.2)
[2019-12-09 07:08] LABS: LARGE PLATELETS FEW; PLATELET ESTIMATE DECREASED
--- NOTE | 2019-12-09 09:09 | NUR ---
ASSUMED CARE AT 0700, ASSESSMENT AND VITAL SIGNS COMPLETED PER ICU PROTOCOL. DR. VALENCIA ROUNDED THIS AM, PLAN OF CARE DISCUSSED, RN WILL CONTINUE TO MONITOR.
--- NOTE | 2019-12-09 12:44 | NUR ---
VASCULAR TEAM ASSESSED NEW CVAD. DRESSING WET WITH MUCOUS FROM PT'S MOUTH. DRG CHG'D BUT WILL NOT STICK DUE TO CONT MOISTURE. DR MARES PRESENT, WILL CALL DR VALENCIA FOR SC LINE DUE TO HIGH INFECTION RISK WITH LIJ
[2019-12-10] VITALS (64 sets, daily range): BP systolic 82–140; BP diastolic 50–94
[2019-12-10 05:07] LABS: HCO3 29.3 mmol/L (22.0-26.0); PCO2 37.5 mmHg (35.0-45.0); PO2 124.1 mmHg (80.0-100.0); pH 7.511 (7.360-7.450); sO2 98.7 % (92.0-98.0)
[2019-12-10 05:28] LABS: ABSOLUTE NEUTROPHILS 7.8 thou/uL (1.4-8.2); BASOPHILS 0.3 % (0.0-2.0); HEMATOCRIT 27.4 % (42.0-52.0); HEMOGLOBIN 9.6 gm/dL (14.0-18.0); LYMPHOCYTES 4.6 % (24.0-44.0); MCH 31.2 pg (26.0-34.0); MCHC 34.9 g/dL (28.0-37.0); MCV 89.3 fL (80.0-100.0); MONOCYTES 3.4 % (1.0-8.0); PLATELET COUNT 62 thou/uL (150-400); POLYS 91.7 % (36.0-66.0); RBC 3.07 mil/uL (4.50-6.00); RDW 14.9 % (10.5-14.5); WBC 8.5 thou/uL (4.0-11.0)
[2019-12-10 05:40] LABS: ALBUMIN 1.4 g/dL (3.4-5.0); CALCIUM 7.7 mg/dL (8.5-10.1); CREATININE 0.5 mg/dL (0.7-1.3); MAGNESIUM 2.1 mg/dL (1.8-2.4); POTASSIUM 3.8 mmol/L (3.5-5.1); TOTAL BILIRUBIN 0.6 mg/dL (0.2-1.0); TOTAL PROTEIN 5.9 g/dL (6.4-8.2)
--- NOTE | 2019-12-10 08:20 | NUR ---
PT'S TEMP GRADUALLY WENT UP THROUGHOUT THE NIGHT WHILE COOLING BLANKET WAS OFF, UPTO TO 101 THIS AM. COOLING BLANKET WAS TURNED ON FOR TEMP CONTROL AND SHUT OFF AT 0625, PT'S TEMP RANGING 96 T0 97 DEGREES FARHEINHEIT. ALSO HELD AM INSULIN BLOOD SUGAR DOWN TO 101, PT RECEIVED 54 UNITS OF LONG ACTING AT HS PER ORDERS REPORTED THIS TO ONCOMING NURSE. TUBE FEEDINGS AT GOAL , NO RESIDUALS.
--- NOTE | 2019-12-10 10:18 | NUR ---
chart review, pt remains on vent, tube feeding for nutritional support. elevated temp. will cont following as needed for dc needs.
--- NOTE | 2019-12-10 20:16 | NUR ---
Patient is progressing slowly towards outcome goals as FiO2 weaned to 50%. Patient remains on cooling blanket throughout the day for temp of 100.7 Monitor continues to show ST. Sedation and increased for comfort. Tube feeding rate increased to goal. Levophed remains at 5 mcg/ min keeping MAP greater than 60 mmhg. Urine output at least 90 ml/hr.
[2019-12-11] VITALS (79 sets, daily range): BP systolic 88–132; BP diastolic 54–91
[2019-12-11 05:53] LABS: HEMATOCRIT 27.6 % (42.0-52.0); HEMOGLOBIN 9.5 gm/dL (14.0-18.0); MCH 30.6 pg (26.0-34.0); MCHC 34.3 g/dL (28.0-37.0); MCV 89.2 fL (80.0-100.0); RBC 3.1 mil/uL (4.50-6.00); WBC 12.1 thou/uL (4.0-11.0)
[2019-12-11 06:05] LABS: CALCIUM 7.9 mg/dL (8.5-10.1); CREATININE 0.5 mg/dL (0.7-1.3); MAGNESIUM 2.1 mg/dL (1.8-2.4); POTASSIUM 3.9 mmol/L (3.5-5.1)
--- NOTE | 2019-12-11 07:10 | NUR ---
LEVOPHED TITRATED DOWN, NOW AT 3MCG/MIN, MAP MAINTAINING ABOVE 65. NO ACUTE CHANGES, VENT SETTINGS UNCHANGED.
[2019-12-11 08:07] LABS: HEPATITIS B SURFACE AG Negative (Negative); HEPATITIS C VIRUS AB <0.1 (0.0-0.9); HIV ANTIBODY Non Reactive (Non Reactive)
--- NOTE | 2019-12-11 09:30 | NUR ---
ASSUMED CARE OF PATIENT THIS AM. PATIENT PLACED ON SEDATION VACATION FROM 0850 TO 0930. O2 SAT REMAINED IN THE UPPER 90'S, RESP RATE WITH THE VENT. MONITOR ST IN THE 100'S, VSS. PATIENT WOULD NOT FOLLOW ANY COMMANDS, BLANK STARE AND WILL BLINK. SEDATION RESUMED BEFORE.
--- NOTE | 2019-12-11 19:31 | NUR ---
1900-RECEIVED REPORT ON PATIENT. ASSUMED CARE AT THIS TIME.
--- NOTE | 2019-12-11 20:02 | NUR ---
PATIENT PROGRESSING SLOWLY TOWARDS OUTCOME GOALS EVIDENT BY. PEEP DECREASED TO 6 CM AND O2 SAT REMAINS IN THE UPPER 90'S, AND RIDING VENT. SEDATION CONTIUES. LEVOPHED DC'S MAP IS GREATER THAN 65 MMHG AND URINE OUTPUT IS AVERAGING 100 ML/HR. TEMP MAX 00.[address] MENDEZ IN AT [place]YA 1300 AND INFORMED OF VANCOMYCIN TROUGH LEVEL OF 2. NO ORDERS RECEIVED.
[2019-12-12] VITALS (60 sets, daily range): BP systolic 87–126; BP diastolic 58–85
--- NOTE | 2019-12-12 09:45 | NUR ---
ASSUMED CARE FROM CELESTINE AGUILAR. PLACED ON SEDATION VACATION FROM 0900 TO 0935 HEART RATE 83 TO 96. RESP RATE UNCHANGED RODE VENT. OPENS EYES AND STARES BUT WILL NOT FOLLOW COMMANDS. O2 SAT IN THE MID 90'S.
--- NOTE | 2019-12-12 19:56 | NUR ---
PATIENT SLOWLY PROGRESSING TOWARDS OUTCOME GOALS, DR GONZALEZ CONSULTED FOR TRACH AND FEEDING TUBE. VENT SETTING UNCHANGED, RESP APPEAR LABORED FEVER INCREASES. TOLERATING TUBE FEEDINGS WITH MINIMAL RESIDUALS. URINE OUTPUT 100 TO 200ML/HR VIA QURESHI. MONITOR SINUS RHYTHM TO SINUS TACH THIS LATE AFTERNOON.
[2019-12-13] VITALS (68 sets, daily range): BP systolic 75–136; BP diastolic 33–94
--- NOTE | 2019-12-13 06:00 | NUR ---
REMAINS INTUBATED AND SEDATED. CONT TO HAVE LABORED GUPPY BREATHING 3800 CC UO THIS SHIFT, FOLLOWS NO COMMNADS FENTANYL PRECEDEX AND VERSED FOR SEDATION. WILL CONT TO MONITOR CLOSELY
[2019-12-13 06:11] LABS: HEMATOCRIT 26.9 % (42.0-52.0); MCH 30.5 pg (26.0-34.0); MCHC 33.5 g/dL (28.0-37.0); MCV 90.9 fL (80.0-100.0); RBC 2.96 mil/uL (4.50-6.00); RDW 15.2 % (10.5-14.5); WBC 6.9 thou/uL (4.0-11.0)
[2019-12-13 06:31] LABS: CALCIUM 7.8 mg/dL (8.5-10.1); CREATININE 0.4 mg/dL (0.7-1.3); POTASSIUM 4.5 mmol/L (3.5-5.1)
[2019-12-13 08:19] LABS: BE(vivo) 4.8 mmol/L (-2 to +3); HCO3 29.8 mmol/L (22.0-26.0); PCO2 46.6 mmHg (35.0-45.0); PO2 64.5 mmHg (80.0-100.0); pH 7.424 (7.360-7.450); sO2 92.9 % (92.0-98.0)
--- NOTE | 2019-12-13 09:27 | NUR ---
ASSUMED CARE AT 0700, ASSESSMENT AND VITAL SIGNS COMPLETED PER ICU PROTOCOL. PT AGONAL BREATHING UPON ASSUMING CARE. RN PAGED AND NOTIFIED DR. CACERES, NEW ORDERS RECEIVED. RN WILL CONTINUE TO MONITOR.
--- NOTE | 2019-12-14 12:17 | NUR ---
LATE NOTE- CONSULT WAS UNABLE TO BE COMPLETED. NO SPIRITUAL CARE STAFF WERE PRESENT FROM WHEN THE CONSULT WAS ENTERED AT 1416 HOURS AND WHEN THE PATIENT AT 1722 HOURS THE SAME AFTERNOON.
== END 2019-12-13 17:22 | DRG 870 ==
LOC: ER 15:38 → 3W 20:13 → ICU 11-17 13:08
PROVIDERS: Emergency Medicine; Internal Medicine; Internal Medicine Pulmonary Disease; Nurse Practitioner Family; Pediatrics; Specialist; ADMIT Internal Medicine; ATTEND Internal Medicine
DX: A41.9 Sepsis, unspecified organism (principal); U07.1 COVID-19; J12.89 Other viral pneumonia; J96.01 Acute respiratory failure with hypoxia; G92 Toxic encephalopathy; R65.21 Severe sepsis with septic shock; E43 Unspecified severe protein-calorie malnutrition; B37.89 Other sites of candidiasis; N39.0 Urinary tract infection, site not specified; E78.5 Hyperlipidemia, unspecified; E10.42 Type 1 diabetes mellitus with diabetic polyneuropathy; I10 Essential (primary) hypertension; E10.65 Type 1 diabetes mellitus with hyperglycemia; F19.10 Other psychoactive substance abuse, uncomplicated; E87.6 Hypokalemia; D69.6 Thrombocytopenia, unspecified; D64.9 Anemia, unspecified; Z51.5 Encounter for palliative care; Z79.4 Long term (current) use of insulin; Z83.3 Family history of diabetes mellitus; Z91.19 Patient's noncompliance with other medical treatment and regimen; Z79.899 Other long term (current) drug therapy
CPT/HCPCS: 10078; 10879